=== PATIENT | female | born 1970 | race Caucasian/White ===

== ENCOUNTER 2018-05-05 15:08 | Observation (INO) ==
[2018-05-05] MEDS ORDERED: Ketorolac 30 MG/ML VIAL IVP ONE (20:03)
[2018-05-05] MEDS ORDERED: Acetaminophen 325 MG TABLET PO PRN (20:04)
[2018-05-05] MEDS: Ringers Solution, Lactated 1,000 ML IVC SCH (21:23)
[2018-05-05] MEDS: *HR* Heparin 5,000 UNIT/ML VIAL SQ SCH (21:29)
--- NOTE | 2018-05-05 21:45 | Internal Med History&Physical ---
Date of Encounter: 05/05/18 Time of Encounter: 21:43 Internal Medicine - H&P: HPI Chief complaint: neck pain Admitted From: Hospital to Hospital Transfer Plans for Post Hospital Care: Home History of present illness: Sara Louie is a 47-year-old morbidly obese woman who reports a history of coronary artery disease presenting on transfer from [facility] where she went to with complaint of sore throat for the past 1 week and subsequently developing pain and stiffness in the musculature of her neck. She also reported feeling feverish and having chills. She denied any trauma to her neck, no IVDU and no recent dental manipulations. She uses dentures and reports no gingival issues. She went to [facility] where a CT scan was done and showed significant inflammatory changes in the anterior aspect of the neck with thickening of the platysma raising the possibility of cellulitis. Adjacent sialadenitis of the submandibular glands suspected. No focal collections were identified. She was given 1 dose of clindamycin and transferred here. At this time she is clinically and hemodynamically stable. Past Med Surg Social Fam HX - Past Medical History Medical history: asthma, COPD, coronary artery disease, diabetes, GERD, hyperlipidemia, hypertension, migraine, myocardial infarction Additional medical history: neuropathy, 4 vessel CABG, heart stents x9, ELAINA Psychiatric history: anxiety, depression - Past Surgical History Surgical History: appendectomy, cholecystectomy, MARYLOU/BSO Additional surgical history: TKA, carpal tunnel - Social History Smoking Status: Former smoker Smokeless Tobacco Status: No Alcohol use: none Drug use: none - Family History Mother Living Status: Still Living Hx Family Cardiac Disorders: Yes Internal Medicine - H&P: Meds Prasugrel [Effient] 10 mg PO DAILY 05/05/18 [History] Allergy/AdvReac Type Severity Reaction Status Date / Time carbamazepine [From Tegretol] Allergy Anaphylaxis Verified 05/05/18 18:38 cephalexin [From Keflex] Allergy Vomiting Verified 05/05/18 18:38 hydromorphone [From Dilaudid] Allergy Hives Verified 05/05/18 18:38 Hydroxychloroquine Allergy Rash Verified 05/05/18 18:38 [From Plaquenil] levofloxacin [From Levaquin] Allergy Itching Verified 05/05/18 18:38 [id number]-Vgs-Wnb Reductase Allergy Muscle Pain Verified 05/05/18 18:38 Inhibitor Sulfa (Sulfonamide Allergy Anaphylaxis Verified 05/05/18 18:38 Antibiotics) All Systems PM: A 10-system review of systems was performed and is negative for pertinent findings except as documented above in the HPI. - Constitutional Vitals: Temp Pulse Resp BP Pulse Ox 98.7 F 81 14 155/82 96 05/05/18 18:26 05/05/18 18:26 05/05/18 18:26 05/05/18 18:26 05/05/18 18:26 Exam: Vitals: Reviewed General: Obese white female lying in bed in no acute distress. Speaks in full sentences. Skin: Warm and supple. HEENT: Moist mucous membranes. No conjunctivae pallor. Neck: Bull's neck, tender to palpation on the anterior and right sides, no focal collections or puncture injuries. Orophaynx intact. No dental lesions. Chest: Normal thoracic expansion. Normal breath sounds. Clear to auscultation. Heart: Normal S1 & S2; rhythmic. No rubs or murmurs. Abdomen: Soft and non-tender to palpation. No peritoneal reaction. Extremities: No clubbing, cyanosis or edema. No calf tenderness. Normal distal pulses. Neurological: Awake, alert and oriented to person, place and time. No focal deficits. Psych: Affect appropriate. - Assessment and plan (1) Cellulitis, neck Current Visit: Yes Status: Acute Assessment and plan: Unclear etiology. No trauma injuries. No dental lesions or manipulations reported. The only precedent she reports is a sore throat. Will check the vasculature of her neck to ensure there is no thrombophlebitis. Will place on empiric abx: vancomycin + amp/sulbactam. Fluid resuscitation. Clear liquid diet for now. Observe response over the next 24 hours. Consideration should be given for ENT consultation if not improving. (2) CAD (coronary artery disease) Current Visit: Yes Status: Acute Assessment and plan: She reports a history of multiple MIs and stent placements. Unclear if she is on dual antiplatelet therapy and statin. Awaiting medication reconciliation. Qualifiers: Coronary Disease-Associated Artery/Lesion type: [place] artery [place] vs. transplanted heart: [place] heart Associated angina: without angina Qualified Code(s): I25.10 - Atherosclerotic heart disease of [place] coronary artery withou t angina pectoris (3) HTN (hypertension) Current Visit: Yes Status: Acute Assessment and plan: Seemingly nonadherent to medications. Does not know what she takes. Will monitor vitals and manage accordingly. Qualifiers: Hypertension type: essential hypertension Qualified Code(s): I10 - Essential (primary) hypertension (4) Obesity Current Visit: Yes Status: Acute Assessment and plan: Counseled on therapeutic lifestyle measures for weight loss. Qualifiers: Obesity type: due to excess calories Obesity classification: adult class 3 (BMI >= 40) Serious obesity comorbidity presence: with serious comorbidity Body mass index: BMI 50.0-59.9 Qualified Code(s): E66.01 - Morbid (severe) obesity due to excess calories; Z68.43 - Body mass index (BMI) 50-59.9, adult - Time Spent With Patient Total time spent is greater than 50% in coordination of care (as documented) at patient's floor/unit and/or counseling patient: Greater than 35 minutes
[2018-05-05 22:31] LABS: Alanine Aminotransferase 18 Units/L (7-52); Albumin 3.6 g/dL (3.5-5.7); Albumin/Globulin Ratio 0.9 (1.1-2.2); Alkaline Phosphatase 97 Units/L (34-104); Aspartate Amino Transferase 16 Units/L (13-39); BUN/Creatinine Ratio 15 (6-26); Bilirubin,Direct 0.1 mg/dL (0.0-0.2); Bilirubin,Indirect 0.2 mg/dL (0.0-1.2); Bilirubin,Total 0.3 mg/dL (0.3-1.0); Blood Urea Nitrogen 11 mg/dL (6-20); Carbon Dioxide 24 mEq/L (23-29); Chloride 108 mEq/L (98-107); Globulin 3.8 g/dL (2.4-3.5); Glucose 71 mg/dL (70-105); Osmolality,Calculated 278 (280-300); Potassium 3.6 mEq/L (3.5-5.1); Sodium 135 mEq/L (136-145); Total Protein 7.4 g/dL (6.4-8.9); eGFR For Non-African Americans > 60 (> 60)
[2018-05-05 23:19] LABS: Basophils % 0.4 %; Eosinophils # 0.1 K/mcL (0.0-0.6); Eosinophils % 1.9 %; Hematocrit 35.3 % (35.3-44.9); Hemoglobin 10.9 g/dL (11.5-15.4); Immature Granulocytes % 1.1 % (0-4); Lymphocytes # 2.4 K/mcL (0.6-4.6); Lymphocytes % 41.9 %; Mean Corpuscular HGB Conc 30.9 g/dL (31.6-35.5); Mean Corpuscular Hemoglobin 24.3 pg (28.0-33.3); Mean Corpuscular Volume 78.6 fL (83.0-100.0); Mean Platelet Volume 9.4 fL (9.4-12.4); Monocytes # 0.4 K/mcL (0.0-1.3); Monocytes % 6.9 %; Neutrophils # 2.7 K/mcL (1.6-8.9); Nucleated Red Blood Cells 0.4 /100 WBC (0); Platelet Count 257 K/mcL (140-400); Red Blood Count 4.49 M/mcL (3.82-4.97); Red Cell Distribution Width 15.9 % (11.5-14.5); Segmented Neutrophils % 47.8 %
[2018-05-05 23:26] LABS: INR 1.1; Prothrombin Time 12.6 Seconds (9.4-12.1)
[2018-05-05 23:39] LABS: Activated Partial Thrombo Time 31.1 Seconds (26.0-36.0)
[2018-05-06] MEDS: Ampicillin/Sulbactam 3,000 MG in 0.9 % Sodium Chloride Mini Bag 100 ML IVPB SCH ×5 (00:30→23:46)
[2018-05-06] MEDS ORDERED: Naloxone 0.4 MG/ML INJ IVP PRN (03:21)
[2018-05-06] MEDS: *HR* HYDROcodone/Acet 5/325 mg TABLET PO PRN ×2 (04:40→16:52)
[2018-05-06] MEDS: *HR* Heparin 5,000 UNIT/ML VIAL SQ SCH ×3 (06:01→20:44)
[2018-05-06] MEDS: *HR* OxyCODONE Immed Rel 5 MG TABLET PO PRN ×2 (09:34→20:44)
--- NOTE | 2018-05-06 11:53 | ENT - Consult Note ---
<MarcelAdina Rosemarie - Last Filed: 05/06/18 17:19> Date of Encounter: 05/06/18 Assessment and Plan (1) Cellulitis, neck Current Visit: Yes Status: Acute No evidence of abscess, no surgical intervention needed at this time. Continue IV antibiotics, consider transition to PO on discharge. No airway compromise (2) Sialadenitis Current Visit: Yes Status: Acute (3) Chronic maxillary sinusitis Current Visit: Yes Status: Acute recommend nasal sinus irrigation as outpatient. Medications and Allergies Prasugrel [Effient] 10 mg PO DAILY 05/05/18 [History] Allergy/AdvReac Type Severity Reaction Status Date / Time carbamazepine [From Tegretol] Allergy Anaphylaxis Verified 05/05/18 18:38 cephalexin [From Keflex] Allergy Vomiting Verified 05/05/18 18:38 hydromorphone [From Dilaudid] Allergy Hives Verified 05/05/18 18:38 Hydroxychloroquine Allergy Rash Verified 05/05/18 18:38 [From Plaquenil] levofloxacin [From Levaquin] Allergy Itching Verified 05/05/18 18:38 Yglbfcs-Tlq-Aft Reductase Allergy Muscle Pain Verified 05/05/18 18:38 Inhibitor Sulfa (Sulfonamide Allergy Anaphylaxis Verified 05/05/18 18:38 Antibiotics) ENT Exam Initial Vital Signs Temp Pulse Resp BP Pulse Ox 98.7 F 81 14 155/82 96 05/05/18 18:26 05/05/18 18:26 05/05/18 18:26 05/05/18 18:26 05/05/18 18:26 - General physical appearance obese - Neck other Exam Initial Vital Signs Temp Pulse Resp BP Pulse Ox 98.7 F 81 14 155/82 96 05/05/18 18:26 05/05/18 18:26 05/05/18 18:26 05/05/18 18:26 05/05/18 18:26 Results - Labs 05/05/18 22:59 05/05/18 21:52 Abnormal lab results Hgb 10.9 g/dL (11.5-15.4) L 05/05/18 22:59 MCV 78.6 fL (83.0-100.0) L 05/05/18 22:59 MCH 24.3 pg (28.0-33.3) L 05/05/18 22:59 MCHC 30.9 g/dL (31.6-35.5) L 05/05/18 22:59 RDW 15.9 % (11.5-14.5) H 05/05/18 22:59 Nucleated RBCs/100 WBC 0.4 /100 WBC (0) H 05/05/18 22:59 PT 12.6 Seconds (9.4-12.1) H 05/05/18 22:59 Sodium 135 mEq/L (136-145) L 05/05/18 21:52 Chloride 108 mEq/L (98-107) H 05/05/18 21:52 Calculated Osmolality 278 (280-300) L 05/05/18 21:52 Globulin 3.8 g/dL (2.4-3.5) H 05/05/18 21:52 Albumin/Globulin Ratio 0.9 (1.1-2.2) L 05/05/18 21:52 Diabetes panel 05/05/18 Range/Units 21:52 Sodium 135 L (136-145) mEq/L Potassium 3.6 (3.5-5.1) mEq/L Chloride 108 H (98-107) mEq/L Carbon Dioxide 24 (23-29) mEq/L BUN 11 (6-20) mg/dL Creatinine 0.73 (0.60-1.20) mg/dL Glucose 71 (70-105) mg/dL Calcium 9.0 (8.6-10.3) mg/dL AST 16 (13-39) Units/L ALT 18 (7-52) Units/L Alkaline Phosphatase 97 (34-104) Units/L Albumin 3.6 (3.5-5.7) g/dL Calcium panel 05/05/18 Range/Units 21:52 Calcium 9.0 (8.6-10.3) mg/dL Albumin 3.6 (3.5-5.7) g/dL Pituitary panel 05/05/18 Range/Units 21:52 Sodium 135 L (136-145) mEq/L Potassium 3.6 (3.5-5.1) mEq/L Chloride 108 H (98-107) mEq/L Carbon Dioxide 24 (23-29) mEq/L BUN 11 (6-20) mg/dL Creatinine 0.73 (0.60-1.20) mg/dL Glucose 71 (70-105) mg/dL Calcium 9.0 (8.6-10.3) mg/dL Adrenal panel 05/05/18 Range/Units 21:52 Sodium 135 L (136-145) mEq/L Potassium 3.6 (3.5-5.1) mEq/L Chloride 108 H (98-107) mEq/L Carbon Dioxide 24 (23-29) mEq/L BUN 11 (6-20) mg/dL Creatinine 0.73 (0.60-1.20) mg/dL Glucose 71 (70-105) mg/dL Calcium 9.0 (8.6-10.3) mg/dL Total Bilirubin 0.3 (0.3-1.0) mg/dL AST 16 (13-39) Units/L ALT 18 (7-52) Units/L Alkaline Phosphatase 97 (34-104) Units/L Albumin 3.6 (3.5-5.7) g/dL All other labs normal. - Imaging Additional studies: CT of the neck was reviewed. Patient with no evidence of abscess in the area of induration in the right cervical region. Patient with some asymmetric enlargement of the submandibular gland but no evidence of abscess. Patient with some cervical lymphadenopathy in level II on the right. Mucosal swelling in bilateral maxillary sinuses. Consult Discharge Plan - Plan Referrals: Gloria Zapata MD [Primary Care Provider] - - Attending Attestation The history, physical exam, and medical decision making was performed by myself in conjunction with the nurse practioner who saw the patient at the bedside. I was physically present and actively performed the examination and medical decision making. I have verified the accuracy of the Nurse practioners documentation with regards to communicating my history, physical exam findings, and medical decision making. <Henrietta Mckenzie - Last Filed: 05/06/18 17:32> Date of Encounter: 05/06/18 Time of Encounter: 11:30 Assessment and Plan (1) Cellulitis, neck Current Visit: Yes Status: Acute No areas of fluctuance or drainable abscess formation. Airway patent and stable. Continue IV antibiotics at this time. Continue to monitor patient for improvement in symptoms. (2) Sialadenitis Current Visit: Yes Status: Acute Continue antibiotics, salivary massage, hydration, and sialagogues such as lemon to aid increasing saliva production. History of Present Illness Consult date: 05/06/18 Reason for ENT Consult: other (neck cellulitis ) Requesting physician: Samantha Holden History of present illness: Patient is a 47-year-old morbidly obese female with past medical history of COPD, coronary artery disease, diabetes, GERD, hyperlipidemia, hypertension, migraine who was transferred here from [facility] where she presented yesterday with complaint of sore throat for approximately 1 week and subsequently developed pain and stiffness in the right side of her neck, which she reports began late sunday. Patient also reports pain below or chin and tongue which was present for several days. She denied any trauma to her neck, no IVDU and no recent dental or oral procedures or manipulations. She uses dentures and reports no gingival issues. CT scan was completed at [facility] and which showed significant inflammatory changes in the anterior aspect of the neck with thickening of the platysma raising the possibility of cellulitis. Adjacent sialadenitis of the submandibular glands suspected. No focal collections were identified. ENT was consulted for further evaluation of neck cellulitis. Patient currently denies any dysphagia, hoarseness, or difficulty controlling secretions. She denies any swelling of the tongue, lips, or mouth area. She currently denies any shortness of breath, wheezing, or stridor. Does admits to persistent sore throat but reports that this is unchanged from previous. Past Med Surg Social Fam HX - Past Medical History Medical history: asthma, COPD, coronary artery disease, diabetes, GERD, hyperli pidemia, hypertension, migraine, myocardial infarction Additional medical history: neuropathy, 4 vessel CABG, heart stents x9, ELAINA Psychiatric history: anxiety, depression - Past Surgical History Surgical History: appendectomy, cholecystectomy, MARYLOU/BSO Additional surgical history: TKA, carpal tunnel - Social History Smoking Status: Former smoker Smokeless Tobacco Status: No Alcohol use: none Drug use: none - Family History Mother Living Status: Still Living Hx Family Cardiac Disorders: Yes ENT - ROS - EENT Nose, mouth and throat: neck pain, sore throat, other (neck swelling) ENT Exam Initial Vital Signs Temp Pulse Resp BP Pulse Ox 98.7 F 81 14 155/82 96 05/05/18 18:26 05/05/18 18:26 05/05/18 18:26 05/05/18 18:26 05/05/18 18:26 - General physical appearance well developed, well nourished, no distress - Eyes PERRL, normal ocular movement - ENT normal pinna, normal nares, CN 2-12 grossly intact, Other (EARS: bilateral EAC's clear, TM's normal bilaterally. ORAL: patient is edentulous upper and lower, no oral lesions, no swelling of oral mucosa, floor of mouth or tongue, no swelling or issues noted of the oropharynx, tonsils atrophied. Saliva expressed from bilateral SMG and parotid glands, no purulent drainage. NOSE: bilateral nares patent, mucosa dry, septum grossly midline. ) - Neck trachea midline, other (swelling of bilateral SMG right > left. Tenderness reported with palpation. Lymphadenopathy noted to left side of neck approxima tely level 2 -3. Area of Induration approximately 2-3 cm in size noted to right lateral neck approximately level 2. No areas of fluctuance noted. ) - Respiratory normal expansion, normal respiratory effort - Neurologic CN 2-12 grossly intact - Psychiatric oriented to time, oriented to person, oriented to place, speech is normal Exam Initial Vital Signs Temp Pulse Resp BP Pulse Ox 98.7 F 81 14 155/82 96 05/05/18 18:26 05/05/18 18:26 05/05/18 18:26 05/05/18 18:26 05/05/18 18:26 Results - Labs 05/05/18 22:59 05/05/18 21:52 Abnormal lab results Hgb 10.9 g/dL (11.5-15.4) L 05/05/18 22:59 MCV 78.6 fL (83.0-100.0) L 05/05/18 22:59 MCH 24.3 pg (28.0-33.3) L 05/05/18 22:59 MCHC 30.9 g/dL (31.6-35.5) L 05/05/18 22:59 RDW 15.9 % (11.5-14.5) H 05/05/18 22:59 Nucleated RBCs/100 WBC 0.4 /100 WBC (0) H 05/05/18 22:59 PT 12.6 Seconds (9.4-12.1) H 05/05/18 22:59 Sodium 135 mEq/L (136-145) L 05/05/18 21:52 Chloride 108 mEq/L (98-107) H 05/05/18 21:52 Calculated Osmolality 278 (280-300) L 05/05/18 21:52 Globulin 3.8 g/dL (2.4-3.5) H 05/05/18 21:52 Albumin/Globulin Ratio 0.9 (1.1-2.2) L 05/05/18 21:52 Diabetes panel 05/05/18 Range/Units 21:52 Sodium 135 L (136-145) mEq/L Potassium 3.6 (3.5-5.1) mEq/L Chloride 108 H (98-107) mEq/L Carbon Dioxide 24 (23-29) mEq/L BUN 11 (6-20) mg/dL Creatinine 0.73 (0.60-1.20) mg/dL Glucose 71 (70-105) mg/dL Calcium 9.0 (8.6-10.3) mg/dL AST 16 (13-39) Units/L ALT 18 (7-52) Units/L Alkaline Phosphatase 97 (34-104) Units/L Albumin 3.6 (3.5-5.7) g/dL Calcium panel 05/05/18 Range/Units 21:52 Calcium 9.0 (8.6-10.3) mg/dL Albumin 3.6 (3.5-5.7) g/dL Pituitary panel 05/05/18 Range/Units 21:52 Sodium 135 L (136-145) mEq/L Potassium 3.6 (3.5-5.1) mEq/L Chloride 108 H (98-107) mEq/L Carbon Dioxide 24 (23-29) mEq/L BUN 11 (6-20) mg/dL Creatinine 0.73 (0.60-1.20) mg/dL Glucose 71 (70-105) mg/dL Calcium 9.0 (8.6-10.3) mg/dL Adrenal panel 05/05/18 Range/Units 21:52 Sodium 135 L (136-145) mEq/L Potassium 3.6 (3.5-5.1) mEq/L Chloride 108 H (98-107) mEq/L Carbon Dioxide 24 (23-29) mEq/L BUN 11 (6-20) mg/dL Creatinine 0.73 (0.60-1.20) mg/dL Glucose 71 (70-105) mg/dL Calcium 9.0 (8.6-10.3) mg/dL Total Bilirubin 0.3 (0.3-1.0) mg/dL AST 16 (13-39) Units/L ALT 18 (7-52) Units/L Alkaline Phosphatase 97 (34-104) Units/L Albumin 3.6 (3.5-5.7) g/dL All other labs normal.
[2018-05-06] MEDS: Ringers Solution, Lactated 1,000 ML IVC SCH (12:23)
--- NOTE | 2018-05-06 13:27 | Internal Med Progress Note ---
Hospitalist Progress Note - Encounter Date of Encounter: 05/06/18 Time of Encounter: 09:45 - Subjective Interval History: Sara Louie is a 47-year-old morbidly obese woman with a known past medical history of COPD, coronary artery disease, diabetes, GERD, hyperlipidemia, hypertension, migraine who was transferred here from [facility] where she went to with complaint of sore throat for the past 1 week and subsequently developing pain and stiffness in the musculature of her neck. She denied any trauma to her neck, no IVDU and no recent dental manipulations. She uses dentures and reports no gingival issues. At [facility] where a CT scan was done and showed significant inflammatory changes in the anterior aspect of the neck with thickening of the platysma raising the possibility of cellulitis. Adjacent sialadenitis of the submandibular glands suspected. No focal collections were identified. She was given 1 dose of clindamycin and transferred here. Pt was admitted in the hospital and placed her on empirical abx Unasyn and V ancomycin. Pt stated she is feeling little better today, however still has diffuse swelling of neck. She still c/o mild difficulty to sallow. - Exam Vitals: Temp Pulse Resp BP Pulse Ox 98.2 F 85 19 198/81 94 05/06/18 11:40 05/06/18 11:40 05/06/18 11:40 05/06/18 11:40 05/06/18 11:40 Exam: Gen: Alert, awake, Oriented to time,place and person HEENT: Diffuse swelling of neck and b/l temporal, parotid, sub manidubalr region with mild erythema. Tenderness+ No posterior pharyngeal erythema / swelling noticed..Air way is patent Chest: Diminished breath sounds B/L, No wheezing, No crackles, No rales Heart: S1S2+ RRR No murmurs Abd: Soft, NT, BS +, No organomegaly Ext: No edema, pulses are palpable, No calf tenderness Neuro : Benign findings Skin: No rash. - Assessment and Plan (1) Cellulitis, neck Current Visit: Yes Status: Acute Assessment and Plan: Unclear etiology Mostly viral etiology Ordered Mumphs ab, Resi viral panel and EB virus ab Air way is patent E.N.T consulted for further eval - appreciate E.N.T recommendations cont empirical abx Unasyn and Vancomycin for now continue symptomatic and supportive care Clear liquid diet for now - advance diet as she tolerates (2) Sialadenitis Current Visit: Yes Status: Acute Assessment and Plan: as above (3) CAD (coronary artery disease) Current Visit: Yes Status: Acute Assessment and Plan: Will resume all home medications Awaiting medication reconciliation. (4) Obesity Current Visit: Yes Status: Acute Assessment and Plan: Counseled on therapeutic lifestyle measures for weight loss. (5) HTN (hypertension) Current Visit: Yes Status: Acute Assessment and Plan: Not well controlled will try to obtain home medications list for now continue IV hydralazine as needed - Time Spent with Patient Total time spent is greater than 50% in coordination of care (as documented) at patient's floor/unit and/or counseling patient: Internal Medicine: Result - Labs CBC & Chem 7: 05/05/18 22:59 05/05/18 21:52 Labs: Short CBC 05/05/18 Range/Units 22:59 WBC 5.7 (4.3-11.1) K/mcL Hgb 10.9 L (11.5-15.4) g/dL Hct 35.3 (35.3-44.9) % Plt Count 257 (140-400) K/mcL Neutrophils # 2.7 (1.6-8.9) K/mcL BMP 05/05/18 21:52 Sodium 135 L Potassium 3.6 Chloride 108 H Carbon Dioxide 24 BUN 11 Creatinine 0.73 Glucose 71 Calcium 9.0 Liver Function 05/05/18 Range/Units 21:52 Total Bilirubin 0.3 (0.3-1.0) mg/dL Direct Bilirubin 0.1 (0.0-0.2) mg/dL AST 16 (13-39) Units/L ALT 18 (7-52) Units/L Alkaline Phosphatase 97 (34-104) Units/L Albumin 3.6 (3.5-5.7) g/dL - ABG Interpretation ABG results: PT/INR, D-dimer PT 12.6 Seconds (9.4-12.1) H 05/05/18 22:59 Consult Discharge Plan - Plan Referrals: Gloria Zapata MD [Primary Care Provider] - (3) CAD (coronary artery disease) Qualifiers: Coronary Disease-Associated Artery/Lesion type: [place] artery [place] vs. transplanted heart: [place] heart Associated angina: without angina Qualified Code(s): I25.10 - Atherosclerotic heart disease of [place] coronary artery without angina pectoris (4) Obesity Qualifiers: Obesity type: due to excess calories Obesity classification: adult class 3 (BMI >= 40) Serious obesity comorbidity presence: with serious comorbidity Eduardo dy mass index: BMI 50.0-59.9 Qualified Code(s): E66.01 - Morbid (severe) obesity due to excess calories; Z68.43 - Body mass index (BMI) 50-59.9, adult (5) HTN (hypertension) Qualifiers: Hypertension type: essential hypertension Qualified Code(s): I10 - Essential (primary) hypertension
[2018-05-06 14:50] LABS: Adenovirus Not Detected (Not Detect); Bordetella Pertussis Not Detected (Not Detect); Chlamydophila pneumoniae Not Detected (Not Detect); Coronavirus 229E Not Detected (Not Detect); Coronavirus HKU1 Not Detected (Not Detect); Coronavirus NL63 Not Detected (Not Detect); Coronavirus OC43 Not Detected (Not Detect); Human Metapneumovirus Not Detected (Not Detect); Human Rhinovirus/Enterovirus Not Detected (Not Detect); Influenza A Subtype 2009 H1 Not Detected (Not Detect); Influenza A Untypeable Not Detected (Not Detect); Influenza B Not Detected (Not Detect); Mycoplasma pneumoniae Not Detected (Not Detect); Parainfluenza Virus 1 Not Detected (Not Detect); Parainfluenza Virus 2 Not Detected (Not Detect); Parainfluenza Virus 3 Not Detected (Not Detect); Parainfluenza Virus 4 Not Detected (Not Detect); Respiratory Syncytial Virus Not Detected (Not Detect)
[2018-05-06] MEDS: *HR* Promethazine 25 MG/ML VIAL IVP PRN (20:15)
[2018-05-06] MEDS ORDERED: Methocarbamol 750 MG TABLET PO ONE (21:00)
[2018-05-07] MEDS: *HR* Promethazine 25 MG/ML VIAL IVP PRN (03:44)
[2018-05-07 04:30] LABS: Basophils % 0.5 %; Eosinophils # 0.3 K/mcL (0.0-0.6); Eosinophils % 4.9 %; Hematocrit 39.4 % (35.3-44.9); Hemoglobin 12.2 g/dL (11.5-15.4); Immature Granulocytes % 1.1 % (0-4); Mean Corpuscular Hemoglobin 24.8 pg (28.0-33.3); Mean Corpuscular Volume 80.2 fL (83.0-100.0); Mean Platelet Volume 9.7 fL (9.4-12.4); Monocytes # 0.3 K/mcL (0.0-1.3); Monocytes % 4.7 %; Neutrophils # 3.8 K/mcL (1.6-8.9); Platelet Count 257 K/mcL (140-400); Red Blood Count 4.91 M/mcL (3.82-4.97); Red Cell Distribution Width 16.6 % (11.5-14.5); Segmented Neutrophils % 57.8 %
[2018-05-07 05:08] LABS: Lymphocytes # 2.1 K/mcL (0.6-4.6)
[2018-05-07 05:09] LABS: Platelet Estimate Normal (Normal)
[2018-05-07] MEDS: Ampicillin/Sulbactam 3,000 MG in 0.9 % Sodium Chloride Mini Bag 100 ML IVPB SCH ×2 (05:19→11:42)
[2018-05-07] MEDS: *HR* Heparin 5,000 UNIT/ML VIAL SQ SCH (05:19)
[2018-05-07] MEDS: *HR* OxyCODONE Immed Rel 5 MG TABLET PO PRN (08:38)
[2018-05-07] MEDS ORDERED: Sennosides/Docusate Sodium TABLET PO PRN (09:16)
[2018-05-07] MEDS ORDERED: Isosorbide MONOnitrate (24 HR) 60 MG TAB.ER.24H PO SCH (09:30)
[2018-05-07] MEDS ORDERED: Gabapentin 300 MG CAPSULE PO SCH (09:30)
[2018-05-07] MEDS ORDERED: ALPRAZolam 1 MG TABLET PO SCH (09:30)
[2018-05-07] MEDS ORDERED: QUETIAPINE FUMARATE 800 MG PO SCH (09:30)
[2018-05-07] MEDS ORDERED: Aspirin Enteric Coated 325 MG Tablet PO SCH (09:30)
[2018-05-07 11:32] VITALS: BP 155/79
--- NOTE | 2018-05-07 12:17 | Discharge Summary ---
- NOTES TO OUTPATIENT PROVIDER Notes to Outpatient Provider: Follow up with PCP in one week. Follow up with ENT in one week. Orders not resulted at time of discharge: Pending orders 05/05/18 21:52 Culture,Blood [BC] Stat 05/06/18 11:09 Aiden Marroquin Virus AB Panel 1 Routine 05/06/18 12:10 Mumps Virus IgM Antibody Routine Date of Encounter: 05/07/18 Time of Encounter: 12:14 - Discharge Diagnosis (1) Cellulitis, neck Priority: Primary Status: Acute (2) Sialadenitis Priority: Primary Status: Acute (3) CAD (coronary artery disease) Priority: Secondary Status: Acute Qualifiers: Coronary Disease-Associated Artery/Lesion type: [place] artery [place] vs. transplanted heart: [place] heart Associated angina: without angina Qualified Code(s): I25.10 - Atherosclerotic heart disease of [place] coronary artery without angina pectoris (4) Obesity Priority: Secondary Status: Acute Qualifiers: Obesity type: due to excess calories Obesity classification: adult class 3 (BMI >= 40) Serious obesity comorbidity presence: with serious comorbidity Body mass index: BMI 50.0-59.9 Qualified Code(s): E66.01 - Morbid (severe) obesity due to excess calories; Z68.43 - Body mass index (BMI) 50-59.9, adult (5) HTN (hypertension) Priority: Secondary Status: Acute Qualifiers: Hypertension type: essential hypertension Qualified Code(s): I10 - Essential (primary) hypertension Hospital course: Ms. Louie is a 47 year old morbidly obese woman with a known past medical history of COPD, coronary artery disease, diabetes, GERD, hyperlipidemia, hypertension, migraine who was transferred here from [facility] where she went to with complaint of sore throat for the past 1 week and subsequently developing pain and stiffness in the musculature of her neck. She denied any trauma to her neck, no IVDU and no recent dental manipulations. She uses dentures and reports no gingival issues. At [facility] where a CT scan was done and showed significant inflammatory changes in the anterior aspect of the neck with thickening of the platysma raising the possibility of cellulitis. Adjacent sialadenitis of the submandibular glands suspected. No focal collections were identified. She was given 1 dose of clindamycin and transferred here. Pt was admitted in the hospital and placed her on empirical abx Unasyn and Vancomycin. Pt was evaluated by ENT who recommend to continue abx therapy. Her viral panel came back as negative. Her EB virus ab is still pending. Her symptoms are much better today and she is tolerating oral intake well. So will d/c her home in stable condition today with PO abx Augmentin for 8 more [address] Her air way is patent and she is breathing comfortably on room air. - Time Spent with Patient Total time spent providing and/or coordinating discharge services: - Discharge Medications Prescriptions: New Amoxicillin/Clavulanate [Augmentin] 875 mg PO BIDWM #16 tablet Continue Prasugrel [Effient] 10 mg PO DAILY Albuterol Sulfate [Albuterol Inhaler] 2 puff IH Q6H PRN PRN Reason: Shortness Of Breath ALPRAZolam [Xanax 1 MG Tablet] 1 mg PO TID Aspirin Enteric Coated [Aspirin EC] 325 mg PO DAILY Bupropion HCl [Wellbutrin Xl] 300 mg PO HS Cyclobenzaprine HCl 10 mg PO TID PRN PRN Reason: Muscle Spasm Ergocalciferol (VITAMIN D2) [Vitamin D2] 50,000 unit PO FR Gabapentin 600 mg PO TID Insulin Glargine,Hum.rec.anlog [[place] Solostar] 80 unit SQ HS Insulin Regular U-500 [HumuLIN R U-500] 11 - 15 unit SQ TID Isosorbide MONOnitrate (24 HR) [Imdur] 60 mg PO DAILY Lisinopril [Zestril] 10 mg PO DAILY Omeprazole [PriLOSEC] 40 mg PO BID Promethazine [Phenergan] 25 mg PO Q4-6H PRN PRN Reason: Nausea Quetiapine Fumarate 800 mg PO HS Sertraline [Zoloft] 200 mg PO DAILY Sennosides/Docusate Sodium [Senna-S Laxative Tablet] 3 tab PO DAILY PRN PRN Reason: Constipation Evolocumab [Repatha Sureclick] 140 mg SQ Q2W Home Medications: Prasugrel [Effient] 10 mg PO DAILY 05/05/18 [History] ALPRAZolam [Xanax 1 MG Tablet] 1 mg PO TID 05/06/18 [History] Albuterol Sulfate [Albuterol Inhaler] 2 puff IH Q6H PRN 05/06/18 [History] Aspirin Enteric Coated [Aspirin EC] 325 mg PO DAILY 05/06/18 [History] Bupropion HCl [Wellbutrin Xl] 300 mg PO HS 05/06/18 [History] Cyclobenzaprine HCl 10 mg PO TID PRN 05/06/18 [History] Ergocalciferol (VITAMIN D2) [Vitamin D2] 50,000 unit PO FR 05/06/18 [History] Evolocumab [Repatha Sureclick] 140 mg SQ Q2W 05/06/18 [History] Gabapentin 600 mg PO TID 05/06/18 [History] Insulin Glargine,Hum.rec.anlog [[place] Solostar] 80 unit SQ HS 05/06/18 [History] Insulin Regular U-500 [HumuLIN R U-500] 11 - 15 unit SQ TID 05/06/18 [History] Isosorbide MONOnitrate (24 HR) [Imdur] 60 mg PO DAILY 05/06/18 [History] Lisinopril [Zestril] 10 mg PO DAILY 05/06/18 [History] Omeprazole [PriLOSEC] 40 mg PO BID 05/06/18 [History] Promethazine [Phenergan] 25 mg PO Q4-6H PRN 05/06/18 [History] Quetiapine Fumarate 800 mg PO HS 05/06/18 [History] Sennosides/Docusate Sodium [Senna-S Laxative Tablet] 3 tab PO DAILY PRN 05/06/18 [History] Sertraline [Zoloft] 200 mg PO DAILY 05/06/18 [History] Amoxicillin/Clavulanate [Augmentin] 875 mg PO BIDWM #16 tablet 05/07/18 [Rx] Allergies/Adverse Reactions: Allergy/AdvReac Type Severity Reaction Status Date / Time carbamazepine [From Tegretol] Allergy Anaphylaxis Verified 05/06/18 18:47 cephalexin [From Keflex] Allergy Vomiting, Verified 05/06/18 18:47 NAUSEA hydromorphone [From Dilaudid] Allergy "COULD NOT Verified 05/06/18 18:47 TALK/ ITCHING" Hydroxychloroquine Allergy See Verified 05/06/18 18:47 [From Plaquenil] Comments levofloxacin [From Levaquin] Allergy Hives Verified 05/06/18 18:47 Voxakdx-Bhj-Edn Reductase Allergy Anaphylaxis Verified 05/06/18 18:47 Inhibitor Sulfa (Sulfonamide Allergy Anaphylaxis Verified 05/05/18 18:38 Antibiotics) Date of admission: 05/05/18 18:06 Primary care physician: Gloria Zapata MD Consults: 05/06/18 10:39 Consult to ENT [CONS] Routine Consulting Provider: ENT Sherie Reason for Consult: Diffuce neck swelling, cellulities - Sialdenitis Time Notified: 10:40 Call Completed: Yes - Constitutional Vitals: Temp Pulse Resp BP Pulse Ox 97.9 F 89 19 155/79 95 05/07/18 11:31 05/07/18 11:31 05/07/18 11:31 05/07/18 11:31 05/07/18 11:31 Exam: Gen: Alert, awake, Oriented to time,place and person HEENT: improving swelling of neck and b/l temporal, sub manidubalr region with mild erythema. No tenderness noticed No posterior pharyngeal erythema / swelling noticed..Air way is patent Chest: Diminished breath sounds B/L, No wheezing, No crackles, No rales Heart: S1S2+ RRR No murmurs Abd: Soft, NT, BS +, No organomegaly Ext: No edema, pulses are palpable, No calf tenderness Neuro : Benign findings Skin: No rash. - Patient Status Disposition: Home, Self-Care Condition: Good Overall status at discharge: patient is back to baseline - Discharge Instructions Follow Up With: Gloria Zapata MD [Primary Care Provider] - Henrietta Mckenzie [employer]ET[employer] INTERN [Advanced Practice Nurse] - - Diet and Activity Activity: increase activity as tolerated Diet: advance to your usual diet, low salt diet
--- NOTE | 2018-05-07 12:21 | ENT - Progress Note ---
Date of Encounter: 05/07/18 Time of Encounter: 11:45 - Assessment and Plan (1) Cellulitis, neck Current Visit: Yes Status: Acute Improved from yesterday. Patient also reports improvement in pain and swelling. No areas of fluctuance or drainable abscess. No further ENT intervention is warranted at this time. Recommend transition to oral antibiotics. ENT is signing off. (2) Sialadenitis Current Visit: Yes Status: Acute Patient may follow up as outpatient in ENT office if symptoms persist, worsen, or reoccur. Recommend patient continue salivary massage, hydration, and sialagogues such as lemon to aid increasing saliva production. (3) Chronic maxillary sinusitis Current Visit: Yes Status: Acute recommend nasal sinus irrigation as outpatient. Subjective Patient reports: feels better, pain is less, tolerating liquids well, tolerating a regular diet, afebrile (Patient reports pain and swelling of the neck is less and she now has increased mobility and range of motion) Objective Initial Vital Signs Temp Pulse Resp BP Pulse Ox 98.7 F 81 14 155/82 96 05/05/18 18:26 05/05/18 18:26 05/05/18 18:26 05/05/18 18:26 05/05/18 18:26 - General physical appearance well developed, well nourished, no distress - Eyes PERRL, normal ocular movement - ENT normal pinna, normal nares, normal mucosa, CN 2-12 grossly intact, Other (EARS: bilateral EAC's clear, TM's normal bilaterally. ORAL: patient is edentulous upper and lower, no oral lesions, no swelling of oral mucosa, floor of mouth or tongue, no swelling or issues noted of the oropharynx, tonsils atrophied. Saliva expressed from bilateral SMG and parotid glands, no purulent drainage. NOSE: bilateral nares patent, mucosa dry, septum grossly midline. ) - Neck trachea midline, other (Decreased swelling of bilateral SMG right > left. Tenderness reported with palpation. Lymphadenopathy noted to right side of neck approximately level 2 decreased compared to yesterday. No areas of fluctuance noted.) - Respiratory normal expansion, normal respiratory effort - Neurologic normal coordination, normal sensation - Psychiatric oriented to time, oriented to person, oriented to place, speech is normal - Labs 05/07/18 03:27 05/05/18 21:52 Consult Discharge Plan - Plan Referrals: Henrietta Mckenzie CNP [Advanced Practice Nurse] - Gloria Zapata MD [Primary Care Provider] - Prescriptions: Amoxicillin/Clavulanate [Augmentin] 875 mg PO BIDWM #16 tablet
--- NOTE | 2018-05-07 14:35 | Physician Discharge Referral ---
Home Health/Hosp Referral Info Transfer to: Home Health Provider in Charge Post Discharge: PCP - Diagnosis (1) Cellulitis, neck Status: Acute (2) Sialadenitis Status: Acute (3) CAD (coronary artery disease) Status: Acute (4) Obesity Status: Acute (5) HTN (hypertension) Status: Acute - Respiratory Orders Smoking Cessation: Smoking cessation has been advised. For more information, call the [place] Tobacco Quit Line at 9-786-XCQV-NOW. - Services Needed Following services are medically necessary services: Home Health Aide - Transfer Medications Prescriptions: Amoxicillin/Clavulanate [Augmentin] 875 mg PO BIDWM #16 tablet Home Medications: Prasugrel [Effient] 10 mg PO DAILY 05/05/18 [History] ALPRAZolam [Xanax 1 MG Tablet] 1 mg PO TID 05/06/18 [History] Albuterol Sulfate [Albuterol Inhaler] 2 puff IH Q6H PRN 05/06/18 [History] Aspirin Enteric Coated [Aspirin EC] 325 mg PO DAILY 05/06/18 [History] Bupropion HCl [Wellbutrin Xl] 300 mg PO HS 05/06/18 [History] Cyclobenzaprine HCl 10 mg PO TID PRN 05/06/18 [History] Ergocalciferol (VITAMIN D2) [Vitamin D2] 50,000 unit PO FR 05/06/18 [History] Evolocumab [Repatha Sureclick] 140 mg SQ Q2W 05/06/18 [History] Gabapentin 600 mg PO TID 05/06/18 [History] Insulin Glargine,Hum.rec.anlog [Rose Parsons] 80 unit SQ HS 05/06/18 [History] Insulin Regular U-500 [HumuLIN R U-500] 11 - 15 unit SQ TID 05/06/18 [History] Isosorbide MONOnitrate (24 HR) [Imdur] 60 mg PO DAILY 05/06/18 [History] Lisinopril [Zestril] 10 mg PO DAILY 05/06/18 [History] Omeprazole [PriLOSEC] 40 mg PO BID 05/06/18 [History] Promethazine [Phenergan] 25 mg PO Q4-6H PRN 05/06/18 [History] Quetiapine Fumarate 800 mg PO HS 05/06/18 [History] Sennosides/Docusate Sodium [Senna-S Laxative Tablet] 3 tab PO DAILY PRN 05/06/18 [History] Sertraline [Zoloft] 200 mg PO DAILY 05/06/18 [History] Amoxicillin/Clavulanate [Augmentin] 875 mg PO BIDWM #16 tablet 05/07/18 [Rx] Allergies/Adverse Reactions: Allergy/AdvReac Type Severity Reaction Status Date / Time carbamazepine [From Tegretol] Allergy Anaphylaxis Verified 05/06/18 18:47 cephalexin [From Keflex] Allergy Vomiting, Verified 05/06/18 18:47 NAUSEA hydromorphone [From Dilaudid] Allergy "COULD NOT Verified 05/06/18 18:47 TALK/ ITCHING" Hydroxychloroquine Allergy See Verified 05/06/18 18:47 [From Plaquenil] Comments levofloxacin [From Levaquin] Allergy Hives Verified 05/06/18 18:47 Jhq[place]ok-Xrl-Sfp Reductase Allergy Anaphylaxis Verified 05/06/18 18:47 Inhibitor Sulfa (Sulfonamide Allergy Anaphylaxis Verified 05/05/18 18:38 Antibiotics) Certification: Further, I certify that my clinical findings support that this patient is homebound (i.e. absences from home require considerable and taxing effort and are for medical reasons or gnosticist services or infrequently or short duration when for other reasons) because: Homebound Reason: Patient requires assistance of a person or device to safely leave home Attestation: My signature below is to certify that this patient is under my care and that I, or nurse practitioner, or a physician's dairy and food laboratory assistant working with me, has a [id number] encounter with this patient.
[2018-05-07] MEDS ORDERED: BuPROPion XL (24 HR) 150 MG TABLET PO SCH (21:00)
[2018-05-08 10:18] LABS: EBV Ab(Viral Capsid Ag)VCA-IgM <10.0 U/mL (0.0-43.9)
[2018-05-10] MEDS ORDERED: Cholecalciferol (D-3) 1,000 UNIT TABLET PO SCH (09:16)
== END 2018-05-07 14:46 | disposition home or self-care (01) ==
LOC: 3BNU → SUATTDRO 18:06
PROVIDERS: ADMIT Hospitalist; ATTEND Family Medicine

== ENCOUNTER 2019-08-04 02:44 | Observation (INO) ==
[2019-08-04] MEDS ORDERED: Isovue-370 500 ML BOTTLE IVP ONE (05:39)
[2019-08-04] MEDS ORDERED: Ondansetron 4 MG/2 ML VIAL IVP PRN (06:05)
[2019-08-04] MEDS ORDERED: Naloxone 0.4 MG/ML INJ IVP PRN (06:05)
[2019-08-04 07:53] LABS: Hemoglobin 7.5 g/dL (11.5-15.4); Immature Platelets 25.7 % (1.1-6.1)
[2019-08-04 07:55] LABS: INR 1.1; Prothrombin Time 12.3 Seconds (9.4-12.1)
[2019-08-04 07:56] LABS: Hematocrit 22.9 % (35.3-44.9); Lymphocytes # 1.2 K/mcL (0.6-4.6); Lymphocytes % 87.2 %; Mean Corpuscular HGB Conc 32.8 g/dL (31.6-35.5); Mean Corpuscular Hemoglobin 29.2 pg (28.0-33.3); Mean Corpuscular Volume 89.1 fL (83.0-100.0); Monocytes # 0.1 K/mcL (0.0-1.3); Neutrophils # 0.1 K/mcL (1.6-8.9); Red Blood Count 2.57 M/mcL (3.82-4.97); Red Cell Distribution Width 17.9 % (11.5-14.5); Segmented Neutrophils % 7.8 %; White Blood Count 1.4 K/mcL (4.3-11.1)
[2019-08-04 08:10] LABS: Alanine Aminotransferase 11 Units/L (7-52); Albumin 3.7 g/dL (3.5-5.7); Albumin/Globulin Ratio 1.2 (1.1-2.2); Alkaline Phosphatase 75 Units/L (34-104); Aspartate Amino Transferase 10 Units/L (13-39); BUN/Creatinine Ratio 20 (6-26); Bilirubin,Total 0.6 mg/dL (0.3-1.0); Blood Urea Nitrogen 16 mg/dL (6-20); Calcium 8.3 mg/dL (8.6-10.3); Carbon Dioxide 26 mEq/L (23-29); Chloride 108 mEq/L (98-107); Glucose 55 mg/dL (70-105); Osmolality,Calculated 293 (280-300); Potassium 3.4 mEq/L (3.5-5.1); Sodium 142 mEq/L (136-145); Total Protein 6.7 g/dL (6.4-8.9); eGFR For African Americans > 60 (> 60); eGFR For Non-African Americans > 60 (> 60)
[2019-08-04 08:23] LABS: Platelet Count 11 K/mcL (140-400)
[2019-08-04 08:24] LABS: Anisocytosis 1+ (Not Present); Platelet Estimate Marked Decrease (Normal)
[2019-08-04 10:11] LABS: Folate 12.2 ng/mL (3.0-16.0)
[2019-08-04 10:20] LABS: Lactate Dehydrogenase 295 Units/L (140-271)
[2019-08-04] MEDS ORDERED: 0.9 % Sodium Chloride 250 ML ONE (10:39)
[2019-08-04] MEDS ORDERED: *HR* OxyCODONE/APAP 10/325 TABLET PO PRN (13:26)
[2019-08-04 14:32] VITALS: BP 110/59
[2019-08-04] MEDS ORDERED: Vancomycin 2,000 MG/520 ML IV.SOLN IVPB ONE (15:21)
[2019-08-04] MEDS ORDERED: Piperacillin/Tazobactam 3.375 GM in 0.9 % Sodium Chloride Mini Bag 100 ML IVPB SCH (16:00)
== END 2019-08-04 16:07 | disposition short-term general hospital (02) ==
LOC: 3ANU → EDSTATUS 05:43
PROVIDERS: ADMIT Family Medicine; ATTEND Family Medicine

== ENCOUNTER 2019-11-11 14:08 | Inpatient (IN) ==
[2019-11-11] MEDS ORDERED: Isovue-370 500 ML BOTTLE IVP ONE (14:18)
[2019-11-11] MEDS ORDERED: Nitroglycerin 0.4 MG TAB.SUBL SL PRN ×2 (14:20→17:52)
[2019-11-11] MEDS ORDERED: Ondansetron 4 MG/2 ML VIAL IVP ONE (14:20)
[2019-11-11] MEDS ORDERED: *HR* FentaNYL (PF) 100 MCG/2 ML VIAL IVP ONE (14:47)
[2019-11-11 14:56] LABS: Hematocrit 19.4 % (35.3-44.9)
[2019-11-11 14:57] LABS: Hemoglobin 6.4 g/dL (11.5-15.4); Immature Platelets 5.2 % (1.1-6.1); Lymphocytes # 1.1 K/mcL (0.6-4.6); Mean Corpuscular Hemoglobin 31.8 pg (28.0-33.3); Mean Corpuscular Volume 96.5 fL (83.0-100.0); Mean Platelet Volume 11.6 fL (9.4-12.4); Neutrophils # 0.1 K/mcL (1.6-8.9); Nucleated Red Blood Cells 1.7 /100 WBC (0); Red Blood Count 2.01 M/mcL (3.82-4.97); Red Cell Distribution Width 17.2 % (11.5-14.5); White Blood Count 1.2 K/mcL (4.3-11.1)
[2019-11-11 15:00] LABS: Platelet Count 31 K/mcL (140-400)
[2019-11-11] MEDS ORDERED: Naloxone 0.4 MG/ML INJ IVP ONE (15:11)
[2019-11-11 15:18] LABS: BUN/Creatinine Ratio 23 (6-26); Blood Urea Nitrogen 11 mg/dL (6-20); Calcium 8.8 mg/dL (8.6-10.3); Carbon Dioxide 26 mEq/L (23-29); Chloride 101 mEq/L (98-107); Glucose 202 mg/dL (70-105); Osmolality,Calculated 285 (280-300); Potassium 3.7 mEq/L (3.5-5.1); Sodium 135 mEq/L (136-145); Troponin I < 0.03 ng/mL (< 0.04); eGFR For African Americans > 60 (> 60); eGFR For Non-African Americans > 60 (> 60)
[2019-11-11 15:37] LABS: Anisocytosis 1+ (Not Present); Hypochromasia Present (Not Present); Platelet Estimate Decreased (Normal)
[2019-11-11] MEDS ORDERED: Piperacillin/Tazobactam 3.375 GM in 0.9 % Sodium Chloride Mini Bag 100 ML IVPB ONE (16:25)
[2019-11-11] MEDS ORDERED: Vancomycin 2,000 MG/520 ML IV.SOLN IVPB ONE (16:35)
[2019-11-11] MEDS ORDERED: Acetaminophen 325 MG TABLET PO PRN (17:00)
[2019-11-11] MEDS ORDERED: Naloxone 0.4 MG/ML INJ IVP PRN (17:00)
[2019-11-11] MEDS ORDERED: *HR* Dextrose 50 % in Water (Vial) 50 ML VIAL IVP PRN (17:06)
[2019-11-11] MEDS ORDERED: D5% in Water 1,000 ML IVC PRN (17:06)
[2019-11-11] MEDS ORDERED: Dextrose Gel 15 GM/37.5 ML TUBE PO PRN ×2 (17:06)
[2019-11-11] MEDS ORDERED: Nystatin POWDER 30 GM BOTTLE TP PRN (17:52)
[2019-11-11] MEDS ORDERED: traZODone 50 MG TABLET PO PRN (17:52)
[2019-11-11] MEDS ORDERED: Vancomycin 2,000 MG/520 ML IV.SOLN IVPB SCH (18:00)
[2019-11-11 18:11] LABS: Adenovirus Not Detected (Not Detect); Coronavirus 229E Not Detected (Not Detect); Coronavirus HKU1 Not Detected (Not Detect); Coronavirus NL63 Not Detected (Not Detect); Coronavirus OC43 Not Detected (Not Detect)
[2019-11-11 18:12] LABS: Bordetella Pertussis Not Detected (Not Detect); Chlamydophila pneumoniae Not Detected (Not Detect); Human Metapneumovirus Not Detected (Not Detect); Human Rhinovirus/Enterovirus Not Detected (Not Detect); Influenza A Subtype 2009 H1 Not Detected (Not Detect); Influenza B Not Detected (Not Detect); Mycoplasma pneumoniae Not Detected (Not Detect); Parainfluenza Virus 1 Not Detected (Not Detect); Parainfluenza Virus 2 Not Detected (Not Detect); Parainfluenza Virus 3 Not Detected (Not Detect); Parainfluenza Virus 4 Not Detected (Not Detect); Respiratory Syncytial Virus Not Detected (Not Detect)
[2019-11-11] MEDS ORDERED: 0.9 % Sodium Chloride 250 ML ONE (19:56)
[2019-11-11] MEDS: Insulin DETEMIR 100 UNIT/ML X5UNITS SQ SCH (20:48)
[2019-11-11] MEDS: Melatonin 3 MG TABLET PO SCH (20:48)
[2019-11-11] MEDS: Magnesium Oxide 400 MG TABLET PO SCH (20:48)
[2019-11-11] MEDS: Sennosides/Docusate Sodium TABLET PO SCH (20:48)
[2019-11-11] MEDS: QUEtiapine Fumarate 100 MG TABLET PO SCH (20:49)
[2019-11-11] MEDS: ALPRAZolam 1 MG TABLET PO SCH (20:50)
[2019-11-12] MEDS: Piperacillin/Tazobactam 3.375 GM in 0.9 % Sodium Chloride Mini Bag 100 ML IVPB SCH ×2 (00:22→10:24)
[2019-11-12 00:37] LABS: Hemoglobin 7.8 g/dL (11.5-15.4)
[2019-11-12 00:39] LABS: Eosinophils % 0.9 %; Hematocrit 23.2 % (35.3-44.9); Immature Granulocytes % 0.9 % (0-4); Lymphocytes % 86.9 %; Mean Corpuscular HGB Conc 33.6 g/dL (31.6-35.5); Mean Corpuscular Hemoglobin 32.5 pg (28.0-33.3); Mean Corpuscular Volume 96.7 fL (83.0-100.0); Mean Platelet Volume 12.4 fL (9.4-12.4); Monocytes # 0.1 K/mcL (0.0-1.3); Monocytes % 4.7 %; Neutrophils # 0.1 K/mcL (1.6-8.9); Nucleated Red Blood Cells 1.9 /100 WBC (0); Red Cell Distribution Width 16.3 % (11.5-14.5); Segmented Neutrophils % 6.6 %
[2019-11-12 00:43] LABS: White Blood Count 1.1 K/mcL (4.3-11.1)
[2019-11-12 00:46] LABS: Platelet Count 26 K/mcL (140-400)
[2019-11-12 00:51] LABS: BUN/Creatinine Ratio 20 (6-26); Blood Urea Nitrogen 12 mg/dL (6-20); Calcium 8.3 mg/dL (8.6-10.3); Carbon Dioxide 24 mEq/L (23-29); Chloride 103 mEq/L (98-107); Glucose 253 mg/dL (70-105); Magnesium 1.5 mg/dL (1.6-2.6); Osmolality,Calculated 288 (280-300); Phosphorous 4.3 mg/dL (2.7-4.5); Potassium 3.7 mEq/L (3.5-5.1); Sodium 135 mEq/L (136-145); eGFR For African Americans > 60 (> 60); eGFR For Non-African Americans > 60 (> 60)
[2019-11-12 00:59] LABS: Platelet Estimate Marked Decrease (Normal)
[2019-11-12] MEDS: *HR* HYDROcodone/Acet 5/325 mg TABLET PO PRN ×2 (05:37→14:55)
[2019-11-12] MEDS ORDERED: Vancomycin 1,500 MG/265 ML IV.SOLN IVPB SCH (06:00)
[2019-11-12 08:03] LABS: Hematocrit 23.6 % (35.3-44.9)
[2019-11-12 08:05] LABS: Hemoglobin 7.8 g/dL (11.5-15.4); Immature Platelets 5.4 % (1.1-6.1); Mean Corpuscular HGB Conc 33.1 g/dL (31.6-35.5); Mean Corpuscular Hemoglobin 31.7 pg (28.0-33.3); Mean Corpuscular Volume 95.9 fL (83.0-100.0); Mean Platelet Volume 9.9 fL (9.4-12.4); Red Blood Count 2.46 M/mcL (3.82-4.97); Red Cell Distribution Width 16.3 % (11.5-14.5); White Blood Count 1.1 K/mcL (4.3-11.1)
[2019-11-12] MEDS: Insulin LISPRO 300 UNITS/3 ML VIAL SQ SCH ×3 (10:25→17:52)
[2019-11-12] MEDS: Magnesium Oxide 400 MG TABLET PO SCH ×2 (10:31→20:54)
[2019-11-12] MEDS: Isosorbide MONOnitrate (24 HR) 60 MG TAB.ER.24H PO SCH (10:31)
[2019-11-12] MEDS: ALPRAZolam 1 MG TABLET PO SCH ×3 (10:32→20:55)
[2019-11-12] MEDS: Ondansetron 4 MG/2 ML VIAL IVP PRN (14:55)
[2019-11-12] MEDS: Cefepime HCl 2,000 MG in Water for inj. (sterile) 20 ML IVP SCH (14:56)
[2019-11-12] MEDS: Melatonin 3 MG TABLET PO SCH (20:54)
[2019-11-12] MEDS: QUEtiapine Fumarate 100 MG TABLET PO SCH (20:54)
[2019-11-12] MEDS: Sennosides/Docusate Sodium TABLET PO SCH (20:54)
[2019-11-12] MEDS: Insulin DETEMIR 100 UNIT/ML X5UNITS SQ SCH (20:54)
[2019-11-13] MEDS: Cefepime HCl 2,000 MG in Water for inj. (sterile) 20 ML IVP SCH ×4 (00:45→23:58)
[2019-11-13] MEDS: Insulin LISPRO 300 UNITS/3 ML VIAL SQ SCH ×3 (08:55→18:15)
[2019-11-13] MEDS: ALPRAZolam 1 MG TABLET PO SCH ×3 (08:56→20:46)
[2019-11-13] MEDS: Magnesium Oxide 400 MG TABLET PO SCH ×2 (08:56→20:45)
[2019-11-13] MEDS: Isosorbide MONOnitrate (24 HR) 60 MG TAB.ER.24H PO SCH (08:56)
[2019-11-13 09:37] LABS: Eosinophils % 1.4 %; Hemoglobin 7.3 g/dL (11.5-15.4); Immature Granulocytes % 1.4 % (0-4); Mean Corpuscular Volume 97.4 fL (83.0-100.0)
[2019-11-13 09:39] LABS: Hematocrit 22.7 % (35.3-44.9); Immature Platelets 5.8 % (1.1-6.1); Lymphocytes # 0.6 K/mcL (0.6-4.6); Lymphocytes % 84.9 %; Mean Corpuscular HGB Conc 32.2 g/dL (31.6-35.5); Mean Corpuscular Hemoglobin 31.3 pg (28.0-33.3); Mean Platelet Volume 11.8 fL (9.4-12.4); Monocytes % 5.5 %; Neutrophils # 0.1 K/mcL (1.6-8.9); Red Blood Count 2.33 M/mcL (3.82-4.97); Red Cell Distribution Width 16.2 % (11.5-14.5); Segmented Neutrophils % 6.8 %
[2019-11-13 09:59] LABS: Alanine Aminotransferase 8 Units/L (7-52); Albumin 3.1 g/dL (3.5-5.7); Alkaline Phosphatase 85 Units/L (34-104); Aspartate Amino Transferase 9 Units/L (13-39); BUN/Creatinine Ratio 18 (6-26); Bilirubin,Total 0.6 mg/dL (0.3-1.0); Blood Urea Nitrogen 9 mg/dL (6-20); Calcium 8.6 mg/dL (8.6-10.3); Carbon Dioxide 28 mEq/L (23-29); Chloride 104 mEq/L (98-107); Globulin 3.1 g/dL (2.4-3.5); Glucose 201 mg/dL (70-105); Magnesium 1.6 mg/dL (1.6-2.6); Osmolality,Calculated 286 (280-300); Phosphorous 3.8 mg/dL (2.7-4.5); Sodium 136 mEq/L (136-145); Total Protein 6.2 g/dL (6.4-8.9); eGFR For African Americans > 60 (> 60); eGFR For Non-African Americans > 60 (> 60)
[2019-11-13 10:15] LABS: Platelet Count 25 K/mcL (140-400)
[2019-11-13 10:16] LABS: Platelet Estimate Marked Decrease (Normal); White Blood Count 0.7 K/mcL (4.3-11.1)
[2019-11-13] MEDS: *HR* HYDROcodone/Acet 5/325 mg TABLET PO SCH ×2 (15:29→20:46)
[2019-11-13] MEDS: Sennosides/Docusate Sodium TABLET PO SCH (20:44)
[2019-11-13] MEDS: QUEtiapine Fumarate 100 MG TABLET PO SCH (20:45)
[2019-11-13] MEDS: Melatonin 3 MG TABLET PO SCH (20:45)
[2019-11-13] MEDS: Insulin DETEMIR 100 UNIT/ML X5UNITS SQ SCH (20:46)
[2019-11-13] MEDS: *HR* OxyCODONE Immed Rel 5 MG TABLET PO PRN (23:57)
[2019-11-14] MEDS: *HR* HYDROcodone/Acet 5/325 mg TABLET PO SCH ×4 (00:09→18:33)
[2019-11-14 04:34] LABS: Mean Corpuscular Volume 96.1 fL (83.0-100.0)
[2019-11-14 04:36] LABS: Eosinophils % 1.6 %; Hematocrit 22.4 % (35.3-44.9); Hemoglobin 7.5 g/dL (11.5-15.4); Immature Granulocytes % 0.8 % (0-4); Lymphocytes # 1.1 K/mcL (0.6-4.6); Lymphocytes % 88.7 %; Mean Corpuscular HGB Conc 33.5 g/dL (31.6-35.5); Mean Corpuscular Hemoglobin 32.2 pg (28.0-33.3); Mean Platelet Volume 12.2 fL (9.4-12.4); Monocytes # 0.1 K/mcL (0.0-1.3); Neutrophils # 0.1 K/mcL (1.6-8.9); Nucleated Red Blood Cells 3.2 /100 WBC (0); Red Blood Count 2.33 M/mcL (3.82-4.97); Red Cell Distribution Width 16.1 % (11.5-14.5); Segmented Neutrophils % 4.9 %; White Blood Count 1.2 K/mcL (4.3-11.1)
[2019-11-14 04:56] LABS: Platelet Count 24 K/mcL (140-400)
[2019-11-14] MEDS: *HR* OxyCODONE Immed Rel 5 MG TABLET PO PRN (05:39)
[2019-11-14 05:59] LABS: Anisocytosis 1+ (Not Present); Platelet Estimate Marked Decrease (Normal)
[2019-11-14 06:00] LABS: Reactive Lymphocytes Present (Not Present)
[2019-11-14] MEDS: Isosorbide MONOnitrate (24 HR) 60 MG TAB.ER.24H PO SCH (09:09)
[2019-11-14] MEDS: ALPRAZolam 1 MG TABLET PO SCH ×3 (09:09→20:45)
[2019-11-14] MEDS: Cefepime HCl 2,000 MG in Water for inj. (sterile) 20 ML IVP SCH ×2 (09:09→16:21)
[2019-11-14] MEDS: Insulin LISPRO 300 UNITS/3 ML VIAL SQ SCH ×3 (09:11→16:27)
[2019-11-14] MEDS: Magnesium Oxide 400 MG TABLET PO SCH ×2 (09:11→20:46)
[2019-11-14] MEDS: Sennosides/Docusate Sodium TABLET PO SCH (20:45)
[2019-11-14] MEDS: Melatonin 3 MG TABLET PO SCH (20:46)
[2019-11-14] MEDS: QUEtiapine Fumarate 100 MG TABLET PO SCH (20:46)
[2019-11-14] MEDS: Insulin DETEMIR 100 UNIT/ML X5UNITS SQ SCH (20:46)
[2019-11-15] MEDS: Cefepime HCl 2,000 MG in Water for inj. (sterile) 20 ML IVP SCH ×3 (00:08→16:49)
[2019-11-15] MEDS: *HR* HYDROcodone/Acet 5/325 mg TABLET PO SCH ×4 (00:32→17:51)
[2019-11-15] MEDS: ALPRAZolam 1 MG TABLET PO SCH ×3 (07:37→20:41)
[2019-11-15] MEDS: Magnesium Oxide 400 MG TABLET PO SCH ×2 (07:37→20:41)
[2019-11-15] MEDS: Isosorbide MONOnitrate (24 HR) 60 MG TAB.ER.24H PO SCH (07:38)
[2019-11-15] MEDS: Insulin LISPRO 300 UNITS/3 ML VIAL SQ SCH ×3 (07:39→16:50)
[2019-11-15] MEDS: Ondansetron 4 MG/2 ML VIAL IVP PRN (10:43)
[2019-11-15 11:35] LABS: Eosinophils % 1.1 %
[2019-11-15 11:37] LABS: Hematocrit 22.9 % (35.3-44.9); Hemoglobin 7.7 g/dL (11.5-15.4); Immature Platelets 5.2 % (1.1-6.1); Lymphocytes # 0.8 K/mcL (0.6-4.6); Lymphocytes % 83.7 %; Mean Corpuscular HGB Conc 33.6 g/dL (31.6-35.5); Mean Corpuscular Hemoglobin 32.1 pg (28.0-33.3); Mean Corpuscular Volume 95.4 fL (83.0-100.0); Mean Platelet Volume 9.7 fL (9.4-12.4); Monocytes # 0.1 K/mcL (0.0-1.3); Monocytes % 5.4 %; Neutrophils # 0.1 K/mcL (1.6-8.9); Nucleated Red Blood Cells 3.3 /100 WBC (0); Red Cell Distribution Width 15.7 % (11.5-14.5); Segmented Neutrophils % 9.8 %
[2019-11-15 11:41] LABS: Platelet Count 23 K/mcL (140-400); White Blood Count 0.9 K/mcL (4.3-11.1)
[2019-11-15 11:55] LABS: BUN/Creatinine Ratio 25 (6-26); Blood Urea Nitrogen 13 mg/dL (6-20); Calcium 8.8 mg/dL (8.6-10.3); Carbon Dioxide 30 mEq/L (23-29); Chloride 100 mEq/L (98-107); Glucose 222 mg/dL (70-105); Magnesium 1.4 mg/dL (1.6-2.6); Osmolality,Calculated 289 (280-300); Phosphorous 3.9 mg/dL (2.7-4.5); Sodium 136 mEq/L (136-145); eGFR For African Americans > 60 (> 60); eGFR For Non-African Americans > 60 (> 60)
[2019-11-15] MEDS ORDERED: polyethylene glycoL 3350 17 GM POWD.PACK PO PRN (14:02)
[2019-11-15 14:26] LABS: Platelet Estimate Marked Decrease (Normal)
[2019-11-15] MEDS: Melatonin 3 MG TABLET PO SCH (20:40)
[2019-11-15] MEDS: QUEtiapine Fumarate 100 MG TABLET PO SCH (20:40)
[2019-11-15] MEDS: Sennosides/Docusate Sodium TABLET PO SCH (20:41)
[2019-11-15] MEDS: Insulin DETEMIR 100 UNIT/ML X5UNITS SQ SCH (20:41)
[2019-11-15] MEDS ORDERED: Insulin DETEMIR 100 UNIT/ML X5UNITS SQ SCH (21:00)
[2019-11-16] MEDS: Cefepime HCl 2,000 MG in Water for inj. (sterile) 20 ML IVP SCH ×4 (00:23→23:54)
[2019-11-16] MEDS: *HR* HYDROcodone/Acet 5/325 mg TABLET PO SCH ×5 (00:26→23:58)
[2019-11-16] MEDS: Insulin LISPRO 300 UNITS/3 ML VIAL SQ SCH ×3 (08:09→18:13)
[2019-11-16] MEDS: Isosorbide MONOnitrate (24 HR) 60 MG TAB.ER.24H PO SCH (08:10)
[2019-11-16] MEDS: ALPRAZolam 1 MG TABLET PO SCH ×3 (08:10→20:55)
[2019-11-16] MEDS: Magnesium Oxide 400 MG TABLET PO SCH ×2 (08:10→20:48)
[2019-11-16 09:31] LABS: Hemoglobin 7.7 g/dL (11.5-15.4)
[2019-11-16 09:33] LABS: Immature Platelets 5.6 % (1.1-6.1); Lymphocytes # 0.9 K/mcL (0.6-4.6); Mean Corpuscular HGB Conc 33.5 g/dL (31.6-35.5); Mean Corpuscular Hemoglobin 32.1 pg (28.0-33.3); Mean Corpuscular Volume 95.8 fL (83.0-100.0); Mean Platelet Volume 11.8 fL (9.4-12.4); Neutrophils # 0.1 K/mcL (1.6-8.9); Nucleated Red Blood Cells 2.1 /100 WBC (0); Red Cell Distribution Width 15.6 % (11.5-14.5)
[2019-11-16 09:41] LABS: Platelet Count 25 K/mcL (140-400)
[2019-11-16 09:51] LABS: Platelet Estimate Marked Decrease (Normal)
[2019-11-16 09:54] LABS: Alanine Aminotransferase 7 Units/L (7-52); Albumin 3.4 g/dL (3.5-5.7); Alkaline Phosphatase 79 Units/L (34-104); Aspartate Amino Transferase 10 Units/L (13-39); BUN/Creatinine Ratio 25 (6-26); Bilirubin,Total 0.6 mg/dL (0.3-1.0); Blood Urea Nitrogen 14 mg/dL (6-20); Calcium 9.2 mg/dL (8.6-10.3); Carbon Dioxide 33 mEq/L (23-29); Chloride 99 mEq/L (98-107); Globulin 3.4 g/dL (2.4-3.5); Glucose 180 mg/dL (70-105); Magnesium 1.5 mg/dL (1.6-2.6); Osmolality,Calculated 291 (280-300); Potassium 4.2 mEq/L (3.5-5.1); Sodium 138 mEq/L (136-145); Total Protein 6.8 g/dL (6.4-8.9); eGFR For African Americans > 60 (> 60); eGFR For Non-African Americans > 60 (> 60)
[2019-11-16] MEDS: QUEtiapine Fumarate 100 MG TABLET PO SCH (20:45)
[2019-11-16] MEDS: Melatonin 3 MG TABLET PO SCH (20:51)
[2019-11-16] MEDS: Sennosides/Docusate Sodium TABLET PO SCH (20:52)
[2019-11-16] MEDS ORDERED: Insulin DETEMIR 100 UNIT/ML X5UNITS SQ SCH (21:00)
[2019-11-17 03:19] LABS: Hematocrit 24.4 % (35.3-44.9); Hemoglobin 8.2 g/dL (11.5-15.4); Mean Corpuscular HGB Conc 33.6 g/dL (31.6-35.5); Mean Corpuscular Hemoglobin 31.8 pg (28.0-33.3); Mean Corpuscular Volume 94.6 fL (83.0-100.0); Red Blood Count 2.58 M/mcL (3.82-4.97)
[2019-11-17 03:21] LABS: Immature Platelets 4.9 % (1.1-6.1); Mean Platelet Volume 11.2 fL (9.4-12.4); Red Cell Distribution Width 15.5 % (11.5-14.5); White Blood Count 1.3 K/mcL (4.3-11.1)
[2019-11-17 03:38] LABS: BUN/Creatinine Ratio 28 (6-26); Blood Urea Nitrogen 16 mg/dL (6-20); Carbon Dioxide 31 mEq/L (23-29); Chloride 98 mEq/L (98-107); Glucose 172 mg/dL (70-105); Magnesium 1.5 mg/dL (1.6-2.6); Osmolality,Calculated 287 (280-300); Potassium 4.2 mEq/L (3.5-5.1); Sodium 136 mEq/L (136-145); eGFR For African Americans > 60 (> 60); eGFR For Non-African Americans > 60 (> 60)
[2019-11-17] MEDS: *HR* HYDROcodone/Acet 5/325 mg TABLET PO SCH ×3 (06:03→17:03)
[2019-11-17] MEDS: Cefepime HCl 2,000 MG in Water for inj. (sterile) 20 ML IVP SCH ×2 (07:45→17:03)
[2019-11-17] MEDS ORDERED: Heparin 1,000 UNITS/500 mL 500 ML ONE (08:27)
[2019-11-17] MEDS ORDERED: *HR* FentaNYL (PF) 100 MCG/2 ML VIAL ONE (08:32)
[2019-11-17] MEDS ORDERED: *HR* Midazolam HCl 2 MG/2 ML VIAL ONE (08:32)
[2019-11-17] MEDS ORDERED: 0.9 % Sodium Chloride 500 ML ONE (08:32)
[2019-11-17] MEDS ORDERED: *HR* FentaNYL (PF) 100 MCG/2 ML VIAL IVP ONE (08:42)
[2019-11-17] MEDS ORDERED: *HR* Midazolam HCl 2 MG/2 ML VIAL IVP ONE (08:42)
[2019-11-17] MEDS ORDERED: Acetaminophen 325 MG TABLET PO PRN (09:23)
[2019-11-17] MEDS ORDERED: Isovue-300 50ML VIAL IVP ONE ×2 (09:35→09:40)
[2019-11-17] MEDS: Insulin LISPRO 300 UNITS/3 ML VIAL SQ SCH ×3 (09:42→17:03)
[2019-11-17] MEDS: Magnesium Oxide 400 MG TABLET PO SCH ×2 (09:43→20:40)
[2019-11-17] MEDS: Isosorbide MONOnitrate (24 HR) 60 MG TAB.ER.24H PO SCH (09:43)
[2019-11-17] MEDS: ALPRAZolam 1 MG TABLET PO SCH ×3 (09:43→20:50)
[2019-11-17] MEDS: Sennosides/Docusate Sodium TABLET PO SCH (20:40)
[2019-11-17] MEDS: Melatonin 3 MG TABLET PO SCH (20:41)
[2019-11-17] MEDS: QUEtiapine Fumarate 100 MG TABLET PO SCH (20:41)
[2019-11-17] MEDS ORDERED: Insulin DETEMIR 100 UNIT/ML X5UNITS SQ SCH (21:00)
[2019-11-18] MEDS: Cefepime HCl 2,000 MG in Water for inj. (sterile) 20 ML IVP SCH ×2 (02:32→07:28)
[2019-11-18] MEDS: *HR* HYDROcodone/Acet 5/325 mg TABLET PO SCH ×3 (03:55→12:42)
[2019-11-18] MEDS: *HR* OxyCODONE Immed Rel 5 MG TABLET PO PRN (04:01)
[2019-11-18 06:44] VITALS: BP 110/71
[2019-11-18] MEDS: Isosorbide MONOnitrate (24 HR) 60 MG TAB.ER.24H PO SCH (07:29)
[2019-11-18] MEDS: Magnesium Oxide 400 MG TABLET PO SCH (07:29)
[2019-11-18] MEDS: Insulin LISPRO 300 UNITS/3 ML VIAL SQ SCH ×2 (07:29→12:42)
[2019-11-18] MEDS: ALPRAZolam 1 MG TABLET PO SCH (07:30)
[2019-11-18 08:20] LABS: Hemoglobin 7.7 g/dL (11.5-15.4); Red Cell Distribution Width 15.7 % (11.5-14.5)
[2019-11-18 08:22] LABS: Hematocrit 23.1 % (35.3-44.9); Immature Platelets 4.3 % (1.1-6.1); Mean Corpuscular HGB Conc 33.3 g/dL (31.6-35.5); Mean Corpuscular Hemoglobin 31.6 pg (28.0-33.3); Mean Corpuscular Volume 94.7 fL (83.0-100.0); Mean Platelet Volume 12.2 fL (9.4-12.4); Neutrophils # 0.1 K/mcL (1.6-8.9); Nucleated Red Blood Cells 1.8 /100 WBC (0); Red Blood Count 2.44 M/mcL (3.82-4.97); White Blood Count 1.1 K/mcL (4.3-11.1)
[2019-11-18 08:32] LABS: BUN/Creatinine Ratio 32 (6-26); Blood Urea Nitrogen 16 mg/dL (6-20); Calcium 9.2 mg/dL (8.6-10.3); Carbon Dioxide 32 mEq/L (23-29); Chloride 99 mEq/L (98-107); Glucose 147 mg/dL (70-105); Magnesium 1.5 mg/dL (1.6-2.6); Osmolality,Calculated 286 (280-300); Sodium 136 mEq/L (136-145); eGFR For African Americans > 60 (> 60); eGFR For Non-African Americans > 60 (> 60)
[2019-11-18 08:56] LABS: Platelet Count 22 K/mcL (140-400)
[2019-11-18 11:56] LABS: Platelet Estimate Marked Decrease (Normal)
[2019-11-18 12:00] LABS: Anisocytosis 1+ (Not Present)
[2019-11-18 13:54] LABS: Estimated Average Glucose 200 mg/dl
== END 2019-11-18 14:10 | disposition home health service (06) | DRG 177 ==
LOC: 3BNU 14:08 → EMEROOARM 14:08 → SUATTDRO 18:15 → 3BNU 19:03 → SUATTDRO 11-12 17:58 → 3ANU 11-14 16:52
PROVIDERS: ADMIT Internal Medicine; ATTEND Internal Medicine